=== PATIENT | female | born 1980 | race Caucasian/White ===

== ENCOUNTER 2017-05-26 18:05 | Inpatient (IN) | payer MEDICARE, MEDICAID ==
[~2017-05-26] VITALS: Ht 170.2 cm; Wt 111.7 kg
--- NOTE | ~2017-05-26 | HP ---
PATIENT'S NAME: NICOLE ROONEY [place] AGE: 36 Y [address] ROOM: [place] [address] [place] [facility] [place]: 05/26/2017 History & Physical DISCHARGE DATE: FAMILY PHYSICIAN: Linda Jiang DO ATTENDING PHYSICIAN: Chun LOPEZ DATE OF SERVICE: CHIEF COMPLAINT: Abdominal pain. 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 The patient is being sent to [facility] from [place]. She presented there with an episode of sharp right upper quadrant abdominal pain associated with nausea and vomiting, which started in the morning. Ultrasound at the outside facility showed cholecystitis with a gallbladder neck stone. Her white count was 13 and she did not have any significant transaminitis. The patient was communicated with Dr. Mccarty who accepted the transfer. At this point, the patient is quite comfortable and reports that her symptoms have resolved after receiving some Demerol in [place]. REVIEW OF SYSTEMS: She denies any fevers, chills, or shortness of breath. All systems have been reviewed and are negative aside from pertinent positives mentioned above. PAST MEDICAL HISTORY: 1. 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 2. End-stage renal disease, on peritoneal dialysis. 3. Rheumatic heart disease, status post biomechanical aortic valve. 4. Chronic hypotension on midodrine. 5. Secondary hyperparathyroidism, status post parathyroidectomy. 6. History of infected fistulas, no longer functional. 7. History of peritonitis. SOCIAL HISTORY: Negative for any ongoing toxic habits. FAMILY HISTORY: PATIENT'S NAME: NICOLE ROONEY [place] AGE: 36 Y [address] ROOM: [place] [address] [place] [facility] [place]: 05/26/2017 History & Physical DISCHARGE DATE: FAMILY PHYSICIAN: Linda Jiang DO ATTENDING PHYSICIAN: Chun LOPEZ Reviewed and is noncontributory due to her known underlying etiology for her presentation. CURRENT MEDICATIONS: Include: 1. Coumadin. 2. Renvela. 3. Midodrine. PHYSICAL EXAMINATION: VITAL SIGNS: Temperature 97.6, pulse is 99, respirations 16, blood pressure is 93/57, and saturating 98% on room air. GENERAL: An obese middle-aged female in no acute distress. NEUROLOGICAL: Exam is nonfocal. EYES: Exam shows pupils are equal and reactive to light. LYMPHATICS: Exam shows no cervical lymphadenopathy. ENDOCRINE: Exam shows no thyromegaly. LUNGS: Clear to auscultation. HEART: Exam reveals regular rate and rhythm with a mechanical S2. GI: Abdomen is soft, slight right upper quadrant tenderness, normoactive bowel sounds. : No costovertebral angle tenderness. VASCULAR: A 2+ pedal pulses. MUSCULOSKELETAL: No muscle or joint abnormalities. PSYCHIATRIC: Appropriate mood, cognition, and affect. SKIN: Warm and dry. LABORATORY DATA: Review of studies at the outside facility reveals white count of 13 and no transaminitis. ASSESSMENT AND PLAN: This is a 36-year-old female with acute cholecystitis. Individual problems to be addressed are: 1. Acute cholecystitis. Discussed with Dr. Mccarty who will see the patient tomorrow and will decide on further operative course. 2. End-stage renal disease. I discussed the case with Dr. Koo, the patient's primary organ pipe maker metal, and she will be started on peritoneal dialysis. 3. Symptom control. We will provide her with Tylenol, Percocet, and morphine if her symptoms become severe. We will also provide her with antiemetics. 4. Hypotension. We will continue the patient on midodrine. 5. Aortic valve replacement, subtherapeutic INR. We will start the patient on heparin drip as her INR is considerably subtherapeutic. PATIENT'S NAME: NICOLE ROONEY [place] AGE: 36 Y [address] ROOM: [place] [address] [place] [facility] [place]: 05/26/2017 History & Physical DISCHARGE DATE: FAMILY PHYSICIAN: Linda Jiang DO ATTENDING PHYSICIAN: Chun LOPEZ 6. Additional management will depend on clinical course. Time dedicated to this patient encounter is 35 minutes. MD HONG BEVERLY/janetl /[id number] D: [id number] T: [id number] HISTORY & PHYSICAL
--- NOTE | ~2017-05-26 | DS ---
PATIENT'S NAME: NICOLE ROONEY [facility] AGE: 36 Y [address] ROOM: [place] [address] [place] [facility] [place]: 05/26/2017 Discharge Summary DISCHARGE DATE: 05/31/2017 FAMILY PHYSICIAN: Linda Jiang DO ATTENDING PHYSICIAN: Chun Rosales DISCHARGE DIAGNOSES: 1. Acute cholecystitis. 2. End-stage renal disease, on peritoneal dialysis. 3. Hypertensive nephrosclerosis. 4. Tertiary hyperparathyroidism. 5. Status post aortic valve replacement with mechanical valve. 6. Long-term anticoagulation. PROCEDURE PERFORMED: She had a lap dionne with Dr. Mccarty. REASON FOR ADMISSION: Acute abdominal pain. LABORATORY DATA: Blood sugars have been benign. Chemistries: Sodium was 134, with potassium 4.8, calcium was low at 7.7 with albumin low at 2.3. AST was up slightly at 50 when she came in, but ALT was normal at 46. Phosphorus was 7.5. GFR of 3. Lipase 42. PTH intact, was 3.2. Cortisol was 29.2. test was negative. Initial white count was 21.3, is down to 17.1. Hemoglobin 10.2. Finally MCV was elevated at 105.7. RDW was 13.5. Platelets are normal at 229, that was her most recent CBC. HIDA scan showed nonfilling of the gallbladder suggestive of obstructive cystic duct. CT of the abdomen showed her abdominal peritoneal dialysis catheter; bibasilar atelectasis; normal liver, spleen, and pancreas; gallbladder had a large laminated stone; bowel looked normal. She did have ascites. HOSPITAL COURSE: Dramatic improvement postoperatively. She feels quite well today even though her white count is still somewhat elevated. She wants to leave. Her medications will be per nursing med recon form. We will have her restart Coumadin today. Taper off her heparin. Diet will be low fat at least until she is able to assess her gallbladder-less body handle some food. Activity will be increased as tolerated and follow up with Dr. Mccarty should be in 10 days. She has to get in touch with us if she does anything, but continued to improve. This discharge took less than half an hour. PATIENT'S NAME: NICOLE ROONEY [facility] AGE: 36 Y [address] ROOM: [address] [address] [place] [facility] [place] DATE: 05/26/2017 Discharge Summary DISCHARGE DATE: 05/31/2017 FAMILY PHYSICIAN: Linda Jiang DO ATTENDING PHYSICIAN: Chun Rosales MD JAZMYNE MONTANO/betty /[id number] d: 06/01/17 1104 t: 06/16/17 1301, DISCHARGE SUMMARY
--- NOTE | ~2017-05-26 | CON ---
PATIENT'S NAME: NICOLE ROONEY [facility] AGE: 36 Y [address] ROOM: [id number] [place] [id number] [place]: [facility] [place] ADMIT DATE: 05/26/2017 Consultation DISCHARGE DATE: FAMILY PHYSICIAN: Linda Jiang DO ATTENDING PHYSICIAN: Chun LOPEZ DATE OF CONSULTATION: 05/26/2017 REFERRING PHYSICIAN: Cruz Mccarty MD [facility] Nephrology Consultation REASON FOR CONSULTATION: End-stage renal disease, on CAPD therapy. HISTORY OF PRESENT ILLNESS: This is a 36-year-old female patient, who is well known to Dr. Koo with a history of end-stage renal disease secondary to glomerulonephritis as a child and hypertensive nephrosclerosis. She is currently dialyzing at home with peritoneal dialysis. She has been sent to [facility] for concerns for gallbladder disease with possible need for cholecystectomy. The patient does have a mechanical aortic valve and is on Coumadin as well. At the time of exam, she is on IV heparin for anticoagulation. She is in no acute distress. PAST MEDICAL HISTORY: As listed above includin. 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 2. End-stage renal disease, on peritoneal dialysis. 3. Hypertensive nephrosclerosis. 4. Tertiary hyperparathyroidism. 5. Status post aortic valve replacement with mechanical valve. 6. Anticoagulation therapy. 7. Central line sepsis. 8. Cholelithiasis. 9. MRSE. 10. CAPD associated peritonitis. PAST SURGICAL HISTORY: As listed above includin. Kidney biopsy as a child. 2. Left forearm primary brachiocephalic AV fistula placement. 3. Peritoneal dialysis catheter placement. 4. Fistulogram. 5. Mechanical thrombectomy. PATIENT'S NAME: NICOLE ROONEY [facility] AGE: 36 Y [address] ROOM: [address] [place], [place] [address] LOCATION: [facility] [place] ADMIT DATE: 05/26/2017 Consultation DISCHARGE DATE: FAMILY PHYSICIAN: Linda Jiang DO ATTENDING PHYSICIAN: Chun LOPEZ ALLERGIES: NONE TO MEDICATION. CURRENT HOME MEDICATIONS: Include: 1. Aspirin 81 mg daily. 2. Gentamicin 1 application topically p.r.n. exit site. 3. Midodrine 10 mg p.o. t.i.d. 4. Renvela 800 mg 2 tablets p.o. p.r.n. with snacks and 3200 mg p.o. t.i.d. with meals. 5. Warfarin 5 mg daily at bedtime. SOCIAL HISTORY: The patient does live in [place] with her mother. She does have a son. She is not and has a boyfriend. She recently had a part-time job. However, she denies any use of tobacco or alcohol use. Reports no illicit drug use. FAMILY HISTORY: Reviewed and there is no family history of kidney disease or dialysis. REVIEW OF SYSTEMS: GENERAL: Denies any new fever, chills, or night sweats. HEENT: Eyes; no double vision or blurred vision. Nose; no epistaxis or rhinorrhea. Mouth; no gingival bleeding. Throat is no sore throat, hardness, or cough. RESPIRATORY: Denies wheezing or hemoptysis. CARDIOVASCULAR: Denies any chest pain or palpitations. GASTROINTESTINAL: See HPI. GENITOURINARY: She does continue to make some urine despite dialysis. MUSCULOSKELETAL: Denies arthralgias or myalgias. HEMATOLOGICAL: Denies any bruising or easy bleeding. IMMUNOLOGICAL: Denies a history of recent infections. PSYCHIATRIC: Denies depression or anxiety. PHYSICAL EXAMINATION: VITAL SIGNS: Blood pressure is 96/52, pulse 82, respirations 16, temperature 97.7, and sats 92% on room air. Weight is 106.9 kg. GENERAL: On exam, this is an alert and oriented, white female, who appears her approximate stated age. She is in no acute distress. HEENT: Her head is normocephalic and atraumatic. Eyes; pupils are equal, round, and reactive to light and accommodation. Nose is midline. Mouth; no gingival bleeding. Throat without lymphadenopathy or carotid bruits. RESPIRATORY: Lung sounds are clear to auscultation anteriorly and posteriorly. PATIENT'S NAME: NICOLE ROONEY [facility] AGE: 36 Y [address] ROOM: [address] [place] [id number] LOCATION: [facility] [place]MIT DATE: 05/26/2017 Consultation DISCHARGE DATE: FAMILY PHYSICIAN: Linda Jiang DO ATTENDING PHYSICIAN: Chun LOPEZ CARDIOVASCULAR: Regular rate and rhythm with a click noted in the right second intercostal space. ABDOMEN: Obese, she does have a peritoneal dialysis catheter placed with no tenderness noted. EXTREMITIES: No peripheral edema, clubbing, or cyanosis. NEUROLOGIC: Cranial nerves 2 through 12 are grossly intact. LABORATORY DATA: WBCs 9.8, hemoglobin 10.9, hematocrit 32.9, and platelets are 219,000. Glucose 96, BUN 32, creatinine 14.3, sodium 139, potassium 3.2, chloride 100, CO2 is 27, calcium 8.3, and albumin 2.4. Amylase 60, lipase 442. Ultrasound from referring hospital report suggests probable stone within the gallbladder neck and mild thickening of the gallbladder wall at 3.4 mm. ASSESSMENT AND PLAN: 1. End-stage renal disease, on continuous ambulatory peritoneal dialysis therapy. We will obtain the patient's outpatient clinical record and provide dialysis accordingly. We will change the patient to continuous cycling peritoneal dialysis while she is hospitalized. We did discuss with Dr. Mccarty, how we would proceed with dialysis following upcoming procedure if the patient does need a surgical removal of the gallbladder. At this time, we would recommend using low fill volumes following per the procedure. 2. Gallbladder disease. Recommendations per Dr. Mccarty. 3. Mechanical aortic valve. The patient is on IV heparin at the time of exam. 4. History of streptococcal glomerulonephritis. 5. History of hypertensive nephrosclerosis. This patient has been seen and assessed by Dr. Koo. Her care is being conducted in consultation with Dr. Koo as well as Mary Calle DNP, NIECY. We will plan further recommendations as they are forthcoming. MARY CALLE DNP, APRN FOR M MD AL GONCALVES/modl /[id number] d: 05/28/17 2223 t: 06/23/17 0934, CONSULTATION REPORT
--- NOTE | ~2017-05-26 | HP ---
PATIENT'S NAME: NICOLE ROONEY [facility] AGE: 36 Y [address] ROOM: [address] [place], [place] [address] LOCATION: [facility] [place] ADMIT DATE: 05/26/2017 History & Physical DISCHARGE DATE: FAMILY PHYSICIAN: Linda Jiang DO ATTENDING PHYSICIAN: Chun LOPEZ DATE OF SERVICE: REFERRING PHYSICIAN: Linda Jiang DO in [place]. CHIEF COMPLAINT: Gallbladder disease. REVIEW OF RECORD: The patient is a 36-year-old young lady, who presented to [place] around noon today with complaints of a 4-hour history of abdominal pain in the right upper quadrant. She says last night she ate some cucumbers, and then woke up at 8 a.m. and started having the pain. She said she had a similar attack about a year ago and was actually seen by my partner, Dr. Moore. It was felt that maybe had some sludge in the gallbladder, and the decision was made since that was her first attack that she was not very symptomatic that they were going to do observation. She has done fairly well. She has occasional nausea, but this attack was pretty painful. In [place], Dr. Jiang evaluated her. She was found to be tender in the right upper quadrant. Laboratory data showed a white count 13,000. Her liver function tests were normal. Her INR was 1.2. The patient has a significant history for some streptococcus infection at age 7, and subsequently, she states developed a renal failure, going on hemodialysis by 28 or 29 years of age. Over the last 3 or 4 years, she has had dialysis via the peritoneal dialysis catheter route. About 4 years ago, she said she had aortic valve replacement mechanical after she developed infectious endocarditis. She had infected left upper extremity AV fistula, which got infected and is no longer functional. She is very pleased with the peritoneal dialysis. She has not had any generalized peritoneal abdominal pain, is just bacterial peritonitis. In fact after given some pain medications up in [place] prior to her transfer, she became asymptomatic. She was admitted to the Hospitalist Service. As mentioned above, her INR was normal, and she is on Coumadin. The Hospitalist recommended putting her on IV heparin as she is not in need of emergent surgical intervention. PAST MEDICAL HISTORY: Illnesses: 1. Poststreptococcal glomerulonephritis. 2. Hypertension. PATIENT'S NAME: NICOLE ROONEY [facility] AGE: 36 Y [address] ROOM: [place] [address] LOCATION: [facility] [place] ADMIT DATE: 05/26/2017 History & Physical DISCHARGE DATE: FAMILY PHYSICIAN: Linda Jiang DO ATTENDING PHYSICIAN: Chun LOPEZ 3. History of hypotension recently. 4. Stage 5 chronic renal disease. 5. History of endocarditis. 6. History of aortic valve replacement. 7. Atrial fibrillation. 8. Insomnia. 9. History of subtotal parathyroidectomy secondary to hyperparathyroidism. 10. Cholelithiasis. MEDICATIONS: 1. Aspirin. 2. Gentamicin. 3. Renvela. 4. Midodrine. 5. Warfarin. 6. Aspirin. ALLERGIES: NONE. OPERATIONS: 1. History of left upper extremity AV fistula formation. 2. History of numerous tunneled hemodialysis catheter. 3. Insertion of a PD catheter. 4. History of aortic valve replacement. SOCIAL HISTORY: She is unemployed. She has one child. She has a significant other. Does not smoke or drink. FAMILY HISTORY: Mom has lung cancer from smoking, just recently had surgery. REVIEW OF SYSTEMS: Denies any fevers or chills. Denies any known problems with her liver or pancreas. She has not had any stools in her blood of recent note. She has had no history of infection of the peritoneal cavity with peritoneal dialysis therapy. She denies any hepatitis. Denies any shortness of breath or physical exertion limitations from her heart. She saw Dr. Lopez, her life care planner, 6 months ago and was given a clean bill of health. PHYSICAL EXAMINATION: GENERAL: The patient is a pleasant 36-old-old young lady, who is asymptomatic, eating a sandwich. HEENT: Her head is normocephalic. Her sclerae are nonicteric. Mucous PATIENT'S NAME: NICOLE ROONEY [facility] AGE: 36 Y [address] ROOM: [place] [address] LOCATION: [facility] [place] ADMIT DATE: 05/26/2017 History & Physical DISCHARGE DATE: FAMILY PHYSICIAN: Linda Jiang DO ATTENDING PHYSICIAN: Chun LOPEZ membranes are dry. NECK: Supple. There is no adenopathy or thyromegaly. LUNGS: Clear to auscultation bilaterally. HEART: Normal sinus rhythm. I can detect the click of the aortic valve. I did not palpate irregular heart beat. ABDOMEN: Mildly obese. She has a peritoneal dialysis catheter in place. She has no tenderness with 4-quadrant palpation. I do not appreciate hepatomegaly to percussion. EXTREMITIES: She has 2/2 femoral pulses. She has no peripheral edema at the ankle. IMPRESSION: Likely, second attack of right upper quadrant abdominal pain, which could be biliary colic in nature. Ultrasound per referring hospital report suggests probable stone within the gallbladder neck and mild thickening of the gallbladder wall at 3.4 mm. They said it was some adjacent next to the gallbladder along Morison's pouch, but that is not unexpected giving her peritoneal dialysis treatment. I had a long discussion with the patient regarding the expectations of laparoscopic cholecystectomy in hopes of alleviating her recurrent attacks, and the performance of it on elective basis rather than emergent. Right now, she is not emergent. I agree with the Hospitalist approach to put her on IV heparin for anticoagulation since she was not. In the morning, I recommend we consult Dr. Koo for his opinion regarding if we do the surgery, what is her postop dialysis route. We could insert a temporary hemodialysis catheter versus use low volume peritoneal dialysis with attention to abdominal wound closure of all 4 trocar sites. We talked about the procedure, benefits, and risks of laparoscopic approach including damage to her peritoneal dialysis catheter as well as peritonitis from gallbladder infection. I agree with administration of IV antibiotics. We will follow up after Dr. Koo has a chance to evaluate her. I think her cardiac status is stable other than the risk of not being anticoagulated and undergoing general surgery; she appears to be in very good condition. This does sound like she is waiting the renal transplantation. The patient is anxious to get her gallbladder removed to prevent additional attacks. Thank you very much for allowing me to participate in her care. MD SUSHMA CHILD/betty PATIENT'S NAME: NICOLE ROONEY [facility] AGE: 36 Y [address] ROOM: [place] [address] LOCATION: [facility] [place] ADMIT DATE: 05/26/2017 History & Physical DISCHARGE DATE: FAMILY PHYSICIAN: Linda Jiang DO ATTENDING PHYSICIAN: Chun LOPEZ /[id number] D: T: HISTORY & PHYSICAL
--- NOTE | ~2017-05-26 | OR ---
PATIENT'S NAME: NICOLE ROONEY [facility] AGE: 36 Y [address] ROOM: [address] [address] [place] [facility] [place]: 05/26/2017 OR/Procedure Report DISCHARGE DATE: 05/31/2017 FAMILY PHYSICIAN: Linda Jiang DO ATTENDING PHYSICIAN: Chun Rosales SURGEON: Cruz Mccarty MD PIPE BUFFER: Gorge Nunez PA-C DATE OF PROCEDURE: 05/28/2017 REFERRING PHYSICIAN: Linda Jiang DO. PREOPERATIVE DIAGNOSES: Chronic and acute cholecystitis and cholelithiasis. POSTOPERATIVE DIAGNOSES: Chronic and acute cholecystitis and cholelithiasis. PROCEDURE PERFORMED: Laparoscopic cholecystectomy. ANESTHESIA: General, 25 mL of 0.5% Marcaine local. SPECIMEN: Gallbladder. INDICATION: The patient is a 36-year-old young lady with a history of end- stage renal disease and aortic valve replacement, who has been undergoing peritoneal dialysis. She has developed acute cholecystitis with cholelithiasis. The patient was transferred down from [place], evaluated per the hospitalist and renal team. We recommended laparoscopic cholecystectomy and given clearance to proceed on 05/28/2017. DESCRIPTION OF PROCEDURE: After informed consent, the patient was taken to the operating room. After general endotracheal anesthesia, the patient's abdomen was prepped and draped into a sterile field. Time-out was performed. We confirmed the patient, planned procedure, and administration of preop antibiotics. Local anesthetic was infiltrated prior to each incision. The first one was made below the umbilicus, carried down to identify the anterior fascia, through which a Veress needle was inserted. Pneumoperitoneum was created. Trocar and laparoscope were inserted. Safe entry was noted in epigastrium, right upper quadrant. We placed the remaining trocars in standard position. The gallbladder was distended and had thick wall. There were acute inflammatory changes. We dissected down the hepatoduodenal ligament. In order to increase our critical view of safety, we took down the lateral reflection of the gallbladder onto the liver bed. This opened up the triangle. We stripped down the adhesions and isolated out the cystic duct, clipped it x4, and divided; the cystic artery, clipped and divided. The gallbladder was removed with electrocautery from liver bed, placed in an EndoCatch bag, and brought out through the 12 mm umbilical fascial defect. We PATIENT'S NAME: NICOLE ROONEY [facility] AGE: 36 Y [address] ROOM: [address] [address] [place] [facility]: 05/26/2017 OR/Procedure Report DISCHARGE DATE: 05/31/2017 FAMILY PHYSICIAN: Linda Jiang DO ATTENDING PHYSICIAN: Chun Rosales then irrigated the right upper quadrant. We used a Veress needle to close the epigastric 11 mm trocar site. We removed the remaining trocars and closed the umbilical fascial defect with 0 Vicryl. Skin was closed with subcuticular 4-0 Vicryl. Steri-Strips and sterile dressings were applied. The patient tolerated the procedure well, was transferred to recovery room in stable condition. MD SUSHMA CHILD/modl /[id number] d: 06/13/1728 t: 07/02/17 1609, OPERATIVE SUMMARY
[2017-05-26] MEDS ORDERED: ASPIRIN LO-DOSE81 MG PO (21:24)
[2017-05-26] MEDS ORDERED: RENVELA800 MG PO ×2 (21:25→22:47)
[2017-05-26] MEDS ORDERED: MIDODRINE HCL10 MG PO (21:28)
[2017-05-26] MEDS ORDERED: MIDODRINE HCL5 MG PO (21:31)
[2017-05-26] MEDS ORDERED: COUMADIN5 MG PO (22:42)
[2017-05-27 07:13] LABS: BASOPHIL # 0.1 K/uL (0.0-0.2); BASOPHIL % 0.9 %; EOSINOPHIL # 0.7 K/uL (0.0-0.5); HEMATOCRIT 32.9 % (33.0-46.0); HEMOGLOBIN 10.9 g/dL (11.0-15.0); IMMATURE GRANULOCYTE # 0.1 K/uL (0.0-0.3); IMMATURE GRANULOCYTE % 1.1 %; LYMPHOCYTE # 2.7 K/uL (0.8-4.0); LYMPHOCYTE % 27.9 %; MCH 33.9 pg (27.0-34.0); MCHC 33.1 gm/dL (32.0-36.5); MCV 102.2 fl (83.0-98.0); MONOCYTE # 0.9 K/uL (0.0-1.0); MONOCYTE % 9.5 %; MPV 10.6 fl (9.4-12.4); NEUTROPHIL # (ANC) 5.3 K/uL (1.8-7.8); NEUTROPHIL % 53.6 %; NRBC % 0 /100WBC (0-0.00); PLATELET COUNT 219 K/uL (150-450); RBC 3.22 M/uL (3.50-5.50); RDW-CV 13.2 % (11.9-14.6); WBC 9.8 K/uL (4.0-11.0)
[2017-05-27 07:30] LABS: ALBUMIN 2.4 gm/dL (3.5-5.0); ANION GAP 15.2 (10.0-19.0); CALCIUM 8.3 mg/dL (8.5-10.5); POTASSIUM 3.2 mMol/L (3.7-5.1); TOTAL BILIRUBIN 0.4 mg/dL (0.0-1.5); TOTAL PROTEIN 6.6 g/dL (6.0-8.4)
[2017-05-27 07:34] LABS: CREATININE 14.3 mg/dL (0.5-1.1)
[2017-05-27 09:35] LABS: PERITONEAL FLUID TURBIDITY CLEAR (CLEAR)
[2017-05-27 10:53] LABS: % PERITONEAL FLUID MONO/MACRO 19 % (0-0)
[2017-05-27 10:55] LABS: % PERITONEAL FLUID BASO 4 % (0-0); % PERITONEAL FLUID MESO 16 % (0-0)
[2017-05-27 10:56] LABS: % PERITONEAL FLUID NEUT 46 % (0-25)
[2017-05-27] MEDS ORDERED: GENTAMICIN SULF30 GM TOP (12:47)
[2017-05-28 05:53] LABS: BASOPHIL # 0.1 K/uL (0.0-0.2); EOSINOPHIL # 0.9 K/uL (0.0-0.5); EOSINOPHIL % 7.3 %; HEMATOCRIT 34.1 % (33.0-46.0); HEMOGLOBIN 11.4 g/dL (11.0-15.0); IMMATURE GRANULOCYTE # 0.3 K/uL (0.0-0.3); IMMATURE GRANULOCYTE % 2.1 %; LYMPHOCYTE % 24.3 %; MCH 34.4 pg (27.0-34.0); MCHC 33.4 gm/dL (32.0-36.5); MONOCYTE # 1.2 K/uL (0.0-1.0); MONOCYTE % 9.6 %; MPV 10.8 fl (9.4-12.4); NEUTROPHIL % 55.7 %; NRBC % 0 /100WBC (0-0.00); RBC 3.31 M/uL (3.50-5.50); RDW-CV 13.2 % (11.9-14.6); WBC 12.5 K/uL (4.0-11.0)
[2017-05-28 05:57] LABS: PLATELET COUNT 273 K/uL (150-450)
[2017-05-28 06:08] LABS: ALBUMIN 2.4 gm/dL (3.5-5.0); ANION GAP 14.3 (10.0-19.0); CALCIUM 8.2 mg/dL (8.5-10.5); PHOSPHORUS 6.2 mg/dL (2.5-4.9); POTASSIUM 3.3 mMol/L (3.7-5.1)
[2017-05-28 06:11] LABS: CREATININE 14.4 mg/dL (0.5-1.1)
[2017-05-29 05:32] LABS: BASOPHIL # 0.1 K/uL (0.0-0.2); BASOPHIL % 0.3 %; HEMATOCRIT 33.9 % (33.0-46.0); HEMOGLOBIN 10.8 g/dL (11.0-15.0); IMMATURE GRANULOCYTE # 0.6 K/uL (0.0-0.3); IMMATURE GRANULOCYTE % 2.9 %; LYMPHOCYTE # 1.2 K/uL (0.8-4.0); LYMPHOCYTE % 5.8 %; MCH 33.3 pg (27.0-34.0); MCHC 31.9 gm/dL (32.0-36.5); MCV 104.6 fl (83.0-98.0); MONOCYTE # 0.6 K/uL (0.0-1.0); MPV 10.7 fl (9.4-12.4); NEUTROPHIL # (ANC) 18.7 K/uL (1.8-7.8); NRBC % 0 /100WBC (0-0.00); PLATELET COUNT 279 K/uL (150-450); RBC 3.24 M/uL (3.50-5.50); RDW-CV 13.3 % (11.9-14.6)
[2017-05-29 05:36] LABS: WBC 21.3 K/uL (4.0-11.0)
[2017-05-29 05:48] LABS: ALBUMIN 2.5 gm/dL (3.5-5.0); TOTAL PROTEIN 7.1 g/dL (6.0-8.4)
[2017-05-29 05:53] LABS: ANION GAP 17.7 (10.0-19.0); POTASSIUM 5.7 mMol/L (3.7-5.1)
[2017-05-29 05:54] LABS: TOTAL BILIRUBIN 0.3 mg/dL (0.0-1.5)
[2017-05-29 13:00] LABS: INR - (THERAPEUTIC) 1.08 (0.92-1.07); PROTIME 11.4 SECONDS (9.8-11.4)
[2017-05-30 08:16] LABS: BASOPHIL # 0.1 K/uL (0.0-0.2); BASOPHIL % 0.3 %; EOSINOPHIL % 0.2 %; HEMATOCRIT 31.9 % (33.0-46.0); HEMOGLOBIN 10.4 g/dL (11.0-15.0); IMMATURE GRANULOCYTE # 0.5 K/uL (0.0-0.3); IMMATURE GRANULOCYTE % 2.5 %; LYMPHOCYTE # 2.1 K/uL (0.8-4.0); LYMPHOCYTE % 9.8 %; MCH 34.6 pg (27.0-34.0); MCHC 32.6 gm/dL (32.0-36.5); MONOCYTE # 1.3 K/uL (0.0-1.0); MONOCYTE % 6.3 %; MPV 10.6 fl (9.4-12.4); NEUTROPHIL # (ANC) 17.2 K/uL (1.8-7.8); NEUTROPHIL % 80.9 %; NRBC % 0 /100WBC (0-0.00); PLATELET COUNT 245 K/uL (150-450); RBC 3.01 M/uL (3.50-5.50); RDW-CV 13.4 % (11.9-14.6)
[2017-05-30 08:17] LABS: WBC 21.2 K/uL (4.0-11.0)
[2017-05-30 08:25] LABS: INR - (THERAPEUTIC) 1.56 (0.92-1.07); PROTIME 16.5 SECONDS (9.8-11.4)
[2017-05-30 08:32] LABS: ALBUMIN 2.5 gm/dL (3.5-5.0); ANION GAP 16.8 (10.0-19.0); CALCIUM 7.8 mg/dL (8.5-10.5); PHOSPHORUS 7.8 mg/dL (2.5-4.9); POTASSIUM 4.8 mMol/L (3.7-5.1)
[2017-05-30 08:34] LABS: CREATININE 17.5 mg/dL (0.5-1.1)
[2017-05-31 04:41] LABS: BASOPHIL # 0.1 K/uL (0.0-0.2); BASOPHIL % 0.5 %; EOSINOPHIL # 0.4 K/uL (0.0-0.5); EOSINOPHIL % 2.1 %; HEMATOCRIT 31.3 % (33.0-46.0); HEMOGLOBIN 10.2 g/dL (11.0-15.0); IMMATURE GRANULOCYTE # 0.6 K/uL (0.0-0.3); IMMATURE GRANULOCYTE % 3.6 %; LYMPHOCYTE # 2.3 K/uL (0.8-4.0); LYMPHOCYTE % 13.6 %; MCH 34.5 pg (27.0-34.0); MCHC 32.6 gm/dL (32.0-36.5); MCV 105.7 fl (83.0-98.0); MONOCYTE # 1.5 K/uL (0.0-1.0); MONOCYTE % 8.7 %; MPV 10.7 fl (9.4-12.4); NEUTROPHIL # (ANC) 12.2 K/uL (1.8-7.8); NEUTROPHIL % 71.5 %; NRBC % 0 /100WBC (0-0.00); PLATELET COUNT 229 K/uL (150-450); RBC 2.96 M/uL (3.50-5.50); RDW-CV 13.5 % (11.9-14.6)
[2017-05-31 04:50] LABS: WBC 17.1 K/uL (4.0-11.0)
[2017-05-31 04:51] LABS: INR - (THERAPEUTIC) 2.72 (0.92-1.07); PROTIME 28.8 SECONDS (9.8-11.4)
[2017-05-31 04:59] LABS: ALBUMIN 2.3 gm/dL (3.5-5.0); ANION GAP 15.8 (10.0-19.0); CALCIUM 7.7 mg/dL (8.5-10.5); PHOSPHORUS 7.5 mg/dL (2.5-4.9); POTASSIUM 4.8 mMol/L (3.7-5.1)
[2017-05-31 05:02] LABS: CREATININE 18.6 mg/dL (0.5-1.1)
[2017-05-31] MEDS ORDERED: PERCOCET 5-3251 EACH PO (14:44)
== END 2017-05-31 15:38 | disposition disaster alternative care site (69) | DRG 418 ==
LOC: GMSU 19:08
PROVIDERS: Internal Medicine; Internal Medicine Nephrology; Nurse Practitioner Family; Surgery; ADMIT Internal Medicine
PROC: 0FT44ZZ Resection of Gallbladder, Percutaneous Endoscopic Approach (ICD-10-PCS; principal; 2017-05-28)
DX: K81.0 Acute cholecystitis (principal); I12.0 Hypertensive chronic kidney disease with stage 5 chronic kidney disease or end stage renal disease; I95.89 Other hypotension; N18.5 Chronic kidney disease, stage 5; I48.91 Unspecified atrial fibrillation; E87.5 Hyperkalemia; E87.6 Hypokalemia; Z99.2 Dependence on renal dialysis; Z95.2 Presence of prosthetic heart valve; Z79.01 Long term (current) use of anticoagulants; Z79.82 Long term (current) use of aspirin; Z80.1 Family history of malignant neoplasm of trachea, bronchus and lung; E66.9 Obesity, unspecified; Z68.37 Body mass index [BMI] 37.0-37.9, adult; E21.2 Other hyperparathyroidism; Z86.79 Personal history of other diseases of the circulatory system; Z86.39 Personal history of other endocrine, nutritional and metabolic disease
CPT/HCPCS: J0694; J0696; J1644; J2001; J2270; J2405; J3010; J7040; J7042; J7050; J7120